=== PATIENT | male | born 1960 | race Caucasian/White ===

== ENCOUNTER → 2023-09-07 13:53 | Outpatient (BNVA) | payer MEDICARE, SELFPAY | PROVIDERS: Referring Provider Dermatology; Visit Provider Orthopaedic Surgery | DX: M54.9 Dorsalgia, unspecified (principal); M54.50 Low back pain, unspecified | CPT/HCPCS: 72110; 99204 ==

== ENCOUNTER 2023-09-16 15:38 | Outpatient (CLI) | payer MEDICARE, SELFPAY ==
--- NOTE | 2023-09-16 16:00 | MR_ITS ---
WS: [id number] MRI LUMBAR SPINE NONCONTRAST TECHNIQUE: Sagittal T1, T2 and STIR imaging. Axial T1 and T2 imaging. CLINICAL INFORMATION: back pain FINDINGS: Counting performed from the craniocervical junction. Small riblets at L1. 6 lumbar type vertebral bod ies considered L1-L6 for the purposes of this dictation. Prior postoperative changes pedicle screw fixation L3-L6 with interbody fusion graft L5-L6. Decompres sive laminectomies. No high-grade central canal stenosis. Slight retrolisthesis L2 on L3 and L3 on L4 . L1-L2: Normal. L2-L3: Slight retrolisthesis. Mild annular bulging. Mild facet arthropathy. Spinal canal and foramina are patent. L3-L4: Slight retrolisthesis. Pedicle screw fixation. Spinal canal and foramen are patent. L4-L5: Postoperative changes. Minimal disc bulging. Spinal canal and foramen are patent. Laminectomy defects. L5-L6: Interbody fusion graft. Spinal canal and foramen are patent. Laminectomy defects. L6-S1: Slight retrolisthesis. Mild disc bulging with slight effacement of the ventral thecal sac. Mil d RIGHT greater than LEFT foraminal narrowing. Mild facet arthropathy. Visualized pelvic bony structures: Normal. Paravertebral soft tissues: Normal. MR/MR lumbar spine wo con* [id number] IMPRESSION: 1. Counting performed from the craniocervical junction. Small riblets at L1. L umbar vertebral bodies considered L1-L6 for the purposes of this dictation. 2. Mild RIGHT L6-S1 foraminal narrowing. 3. Spinal canal and foramen are otherwise patent at the fusion levels. 4. Shallow central protrusion L6-S1 with slight effacement of the ventral thec al sac. 5. Tiny central protrusion L2-3 with slight effacement of the ventral thecal s ac.
== END 2023-09-16 15:39 | disposition home or self-care (01) ==
LOC: RAD 15:41
PROVIDERS: PCP Orthopaedic Surgery; Visit Provider Orthopaedic Surgery
DX: M54.9 Dorsalgia, unspecified (principal); M48.07 Spinal stenosis, lumbosacral region; M51.27 Other intervertebral disc displacement, lumbosacral region
CPT/HCPCS: 72148

== ENCOUNTER → 2023-09-23 13:36 | Outpatient (BNVA) | payer MEDICARE, SELFPAY | PROVIDERS: PCP Orthopaedic Surgery; Visit Provider Orthopaedic Surgery | DX: M54.9 Dorsalgia, unspecified (principal); M48.062 Spinal stenosis, lumbar region with neurogenic claudication; M54.42 Lumbago with sciatica, left side; G89.29 Other chronic pain | CPT/HCPCS: 80053; 81003; 85025; 99214 ==

== ENCOUNTER → 2023-10-27 09:01 | Outpatient (BNVA) | payer MEDICARE, SELFPAY | PROVIDERS: PCP Orthopaedic Surgery; Visit Provider Family Medicine | DX: Z01.818 Encounter for other preprocedural examination (principal) | CPT/HCPCS: 80053; 81003; 85025 ==

== ENCOUNTER → 2023-10-28 13:08 | Outpatient (BNVA) | payer MEDICARE, SELFPAY | PROVIDERS: PCP Orthopaedic Surgery; Visit Provider Orthopaedic Surgery | DX: Z98.1 Arthrodesis status (principal) | CPT/HCPCS: 99213 ==

== ENCOUNTER 2025-04-04 11:29 | Outpatient (CLI) | payer MEDICARE, SELFPAY ==
--- NOTE | 2025-04-04 11:38 | XRR_ITS ---
PROCEDURE INFORMATION: Exam: XR Right Shoulder Exam date and time: 04/04/2025 11:59 AM Age: 64 years old Clinical indication: Right; Limited rom & pain down RT arm x 6 weeks. PT states no injury occured to shoulder. ; Additional info: Injury RT shoulder TECHNIQUE: Imaging protocol: Radiologic exam of the right shoulder. Views: 2 or more views. COMPARISON: No relevant prior studies available. FINDINGS: Bones/joints: AP views in internal and external rotation were generated. There are minimal hypertrophic arthropathic changes of the AC joint without significant narrowing of the supraspinatus outlet. The bones, joints, and soft tissues are otherwise unremarkable. Soft tissues: See Bones/joints finding. XR/XR shoulder RT min 2V* [id number] IMPRESSION: 1. No acute right shoulder pathology. 2. Minimal AC joint osteoarthritic change.
== END 2025-04-04 11:30 | disposition home or self-care (01) ==
PROVIDERS: PCP Nurse Practitioner; Visit Provider Nurse Practitioner
DX: S49.91XA Unspecified injury of right shoulder and upper arm, initial encounter (principal); X58.XXXA Exposure to other specified factors, initial encounter; M79.621 Pain in right upper arm
CPT/HCPCS: 73030

== ENCOUNTER → 2025-04-24 09:46 | Outpatient (BNVA) | payer MEDICARE, SELFPAY | PROVIDERS: PCP Family Medicine; Visit Provider Family Medicine | DX: Z13.6 Encounter for screening for cardiovascular disorders (principal); N40.0 Benign prostatic hyperplasia without lower urinary tract symptoms | CPT/HCPCS: 80053; 80061; 84153; 84439; 84443; 85025 ==